=== PATIENT | male | born 1985 | race Caucasian/White ===

== ENCOUNTER 2017-01-07 03:18 | Emergency (ER) | payer OTHER ==
[~2017-01-07] VITALS: Ht 170.2 cm; Wt 81.8 kg
[2017-01-07] MEDS ORDERED: CYCLOBENZAPRINE HCL 10 MG TABLET PO ONE (05:00)
[2017-01-07] MEDS ORDERED: KETOROLAC TROMETHAMINE 60 MG/2 ML VIAL IM ONE (05:00)
[2017-01-07 05:40] VITALS: BP 122/74
== END 2017-01-07 05:52 | disposition home or self-care (01) ==
LOC: EMS 03:19
DX: M54.5 Low back pain (principal); F17.210 Nicotine dependence, cigarettes, uncomplicated
CPT/HCPCS: 96372; 99283; J1885

== ENCOUNTER 2018-03-06 13:28 | Emergency (ER) | payer OTHER ==
[~2018-03-06] VITALS: Ht 170.2 cm; Wt 84.1 kg
[2018-03-06] MEDS ORDERED: IBUPROFEN 800 MG TABLET PO ONE (17:00)
[2018-03-06 17:13] VITALS: BP 123/83
== END 2018-03-06 17:16 | disposition home or self-care (01) ==
LOC: EMS 13:29
DX: K08.89 Other specified disorders of teeth and supporting structures (principal); F17.210 Nicotine dependence, cigarettes, uncomplicated

== ENCOUNTER 2018-08-05 20:41 | Emergency (ER) | payer OTHER ==
[~2018-08-05] VITALS: Ht 170.2 cm; Wt 79.5 kg
[2018-08-05 22:58] VITALS: BP 143/92
[2018-08-05] MEDS ORDERED: IBUPROFEN 800 MG TABLET PO ONE (23:30)
[2018-08-05] MEDS ORDERED: AMOX TR/POT CLAV 500 MG/125 MG TABLET PO ONE (23:30)
== END 2018-08-06 00:54 | disposition home or self-care (01) ==
LOC: EMS 20:44
DX: K02.9 Dental caries, unspecified (principal); F17.210 Nicotine dependence, cigarettes, uncomplicated
CPT/HCPCS: 99406

== ENCOUNTER 2019-03-30 16:24 | Emergency (ER) | payer OTHER ==
[~2019-03-30] VITALS: Ht 170.2 cm; Wt 74.0 kg
[2019-03-30] MEDS ORDERED: PERTUSS(ACELL),DIPH,TET VAC/PF 0.5 ML VIAL IM ONE (19:45)
[2019-03-30] MEDS ORDERED: LIDOCAINE 1% 10 ML VIAL INJ ONE (19:45)
[2019-03-30] MEDS ORDERED: ACETAMINOPHEN 325 MG TABLET PO ONE (19:45)
[2019-03-30] MEDS ORDERED: BACITRACIN 0.9 GM PACKET OINTMENT TP ONE (20:30)
[2019-03-30 21:32] VITALS: BP 122/75
== END 2019-03-30 21:47 | disposition home or self-care (01) ==
LOC: EMS 16:28
DX: S61.411A Laceration without foreign body of right hand, initial encounter (principal); Z98.890 Other specified postprocedural states; W31.0XXA Contact with mining and earth-drilling machinery, initial encounter; Y93.89 Activity, other specified; Y92.89 Other specified places as the place of occurrence of the external cause; Y99.8 Other external cause status
CPT/HCPCS: 12001; 73130; 90471; 90715; 99283; J3490

== ENCOUNTER 2019-12-09 03:13 | Emergency (ER) | payer OTHER ==
[~2019-12-09] VITALS: Ht 170.2 cm; Wt 75.0 kg
[2019-12-09 03:19] VITALS: BP 134/78
== END 2019-12-09 04:36 | disposition home or self-care (01) ==
LOC: EMS 03:13
DX: K08.89 Other specified disorders of teeth and supporting structures (principal); F17.200 Nicotine dependence, unspecified, uncomplicated
CPT/HCPCS: 12002

== ENCOUNTER 2019-12-28 22:34 | Emergency (ER) | payer OTHER ==
[~2019-12-28] VITALS: Ht 170.2 cm; Wt 82.7 kg
[2019-12-28] MEDS ORDERED: [UNRECOGNIZED DRUG - CODE] PO (22:45)
[2019-12-28] MEDS ORDERED: PENI500T2 PO (22:49)
[2019-12-29 00:41] LABS: APPEARANCE,URINE CLOUDY (CLEAR); BILIRUBIN,URINE NEGATIVE (NEGATIVE); GLUCOSE, URINE (UA) NEGATIVE (NEGATIVE); KETONES,URINE TRACE mg/dL (NEGATIVE); LEUKOCYTE ESTERASE ,URINE TRACE (NEGATIVE); NITRATE,URINE NEGATIVE (NEGATIVE); OCCULT BLOOD,URINE LARGE (NEGATIVE); PROTEIN,URINE POS 1+ (NEGATIVE); UROBILINOGEN,URINE 0.2 mg/dL (<=1.0)
[2019-12-29 01:02] LABS: BACTERIA,URINE Few /HPF (None Seen)
[2019-12-29 01:03] LABS: SQUAMOUS EPITHELIAL CELL,UR Few /LPF (None Seen)
[2019-12-29 01:24] VITALS: BP 119/68
== END 2019-12-29 01:32 | disposition home or self-care (01) ==
LOC: EMS 22:37
DX: R31.9 Hematuria, unspecified (principal); M54.5 Low back pain; R39.11 Hesitancy of micturition; F17.200 Nicotine dependence, unspecified, uncomplicated

== ENCOUNTER 2020-04-20 19:36 | Emergency (ER) | payer OTHER ==
[~2020-04-20] VITALS: Ht 170.2 cm; Wt 84.1 kg
[~2020-04-20 19:36] MED LIST: PENI500T2 PO
[2020-04-20 21:19] LABS: COVID AG,FIA SOURCE NASOPHARYNGEAL
[2020-04-20 22:19] VITALS: BP 119/71
== END 2020-04-20 22:23 | disposition home or self-care (01) ==
LOC: EMS 19:36
DX: Z20.828 Contact with and (suspected) exposure to other viral communicable diseases (principal); F17.200 Nicotine dependence, unspecified, uncomplicated
CPT/HCPCS: 87426; 99283; U0003

== ENCOUNTER 2020-11-02 07:39 | Emergency (ER) | payer OTHER ==
[~2020-11-02] VITALS: Ht 167.6 cm; Wt 70.5 kg
[2020-11-02 07:44] VITALS: BP 137/83
[2020-11-02] MEDS ORDERED: KETOROLAC TROMETHAMINE 30 MG/ML VIAL IM ONE (08:15)
[2020-11-02] MEDS ORDERED: LIDOCAINE 5% TRANSDERMAL PATCH TD ONE (08:15)
[2020-11-02] MEDS ORDERED: ACETAMINOPHEN 500 MG TABLET PO ONE (08:15)
== END 2020-11-02 09:20 | disposition home or self-care (01) ==
LOC: EMS 07:43
DX: S29.012A Strain of muscle and tendon of back wall of thorax, initial encounter (principal); X58.XXXA Exposure to other specified factors, initial encounter; Y93.89 Activity, other specified; Y92.89 Other specified places as the place of occurrence of the external cause; Y99.8 Other external cause status
CPT/HCPCS: 96372; 99283; J1885

== ENCOUNTER 2022-05-08 18:45 | Emergency (ER) | payer OTHER ==
[~2022-05-08] VITALS: Ht 172.7 cm; Wt 72.7 kg
[2022-05-08 18:57] VITALS: BP 131/88
[2022-05-08] MEDS ORDERED: KETOROLAC TROMETHAMINE 30 MG/ML VIAL IM ONE (20:00)
[2022-05-08] MEDS ORDERED: LIDOCAINE 5% TRANSDERMAL PATCH TD ONE (20:00)
[2022-05-08] MEDS ORDERED: ACET-3385 PO (20:03)
[2022-05-08] MEDS ORDERED: LIDO700A15 TP (20:03)
[2022-05-08] MEDS ORDERED: IBUP-1492 PO (20:03)
== END 2022-05-08 20:52 | disposition home or self-care (01) ==
LOC: EMS 19:13
DX: M54.16 Radiculopathy, lumbar region (principal); M54.30 Sciatica, unspecified side; Z98.890 Other specified postprocedural states
CPT/HCPCS: 99283; 96372; J1885

== ENCOUNTER 2023-03-19 03:49 | Emergency (ER) | payer OTHER ==
[~2023-03-19] VITALS: Ht 170.2 cm; Wt 86.4 kg
[~2023-03-19 03:49] MED LIST changes: +ACET-3385 PO; +IBUP-1492 PO; +LIDO700A15 TP; -PENI500T2 PO
[2023-03-19 04:11] VITALS: TEMP 98.6
[2023-03-19 04:37] VITALS: BP 140/88; PULSE 66; RESP 16
[2023-03-19] MEDS ORDERED: DIPH50CA37 PO (05:21)
[2023-03-19] MEDS ORDERED: DiphenhydrAMINE HCL 25 MG CAPSULE PO ONE (05:30)
== END 2023-03-19 05:51 | disposition home or self-care (01) ==
LOC: EMS 03:50
DX: T78.1XXA Other adverse food reactions, not elsewhere classified, initial encounter (principal); Z98.890 Other specified postprocedural states; X58.XXXA Exposure to other specified factors, initial encounter
CPT/HCPCS: 99282; Z7502; Z7610

== ENCOUNTER 2024-07-28 14:17 | Emergency (ER) | payer OTHER ==
[~2024-07-28] VITALS: Ht 170.2 cm; Wt 90.0 kg
[~2024-07-28 14:17] MED LIST changes: +DIPH50CA37 PO
[2024-07-28 14:24] VITALS: BP 144/96; PULSE 82; RESP 22; TEMP 97.8; O2SAT 97
[2024-07-28] MEDS ORDERED: IBUP-1492 PO (15:22)
[2024-07-28] MEDS: KETOROLAC TROMETHAMINE 30 MG/ML VIAL IM ONE (15:41)
[2024-07-28] MEDS: ACETAMINOPHEN 500 MG TABLET PO ONE (15:41)
== END 2024-07-28 16:13 | disposition home or self-care (01) ==
LOC: EMS 14:22
DX: S39.012A Strain of muscle, fascia and tendon of lower back, initial encounter (principal); Z98.890 Other specified postprocedural states; X58.XXXA Exposure to other specified factors, initial encounter; Y93.89 Activity, other specified; Y92.89 Other specified places as the place of occurrence of the external cause; Y99.8 Other external cause status
CPT/HCPCS: 99283; 96372; J1885